=== PATIENT | female | born 1940 | race Caucasian/White ===

== ENCOUNTER → 2017-12-23 | Outpatient (CLI) | payer MEDICARE, OTHER ==
[~2017-12-23] MED LIST: ALE70 PO; ATEN-1 PO; CALC600T72 PO; HCTZ25 PO; LANS30CA70 PO; LEVO50TA86 PO; OXYC-865 PO; VIT1CAPS38 PO
--- NOTE | 2017-12-23 17:39 | RADIOLOGY IMAGING REPORT ---
FACILITY: [facility] - [place] PATIENT NAME: Hali Cisneros : 1940 MR: [id number] V: EXAM DATE: ORDERING PHYSICIAN: RIN TRIANA TECHNOLOGIST: Location: [facility] [place] Patient: Hali Cisneros : 1940 Visit/Account:[id number] Date of Sevice: 12/23/2017 Exam type: VENOUS DOPP LOW LEFT EXTREMITY History: Left leg edema Comparison: None. Findings: The left lower extremity veins were imaged including the left common femoral vein, greater saphenous vein, superficial femoral vein, popliteal vein, posterior tibial vein, peroneal vein anterior tibial veins revealing no evidence of intraluminal thrombi. The veins were compressible and demonstrated au gmentation IMPRESSION: 1. No sonographic evidence DVT involving the left lower extremity veins Results were called to RIN TRIANA at 12/23/2017 5:35 PM. Report Dictated By: Isabela Mccray MD at 12/23/2017 5:34 PM Report E-Signed By: Isabela Mccray MD at 12/23/2017 5:36 PM WSN:[id number]
== END ==
LOC: US 16:24
PROVIDERS: ATTEND Physician Assistant
DX: R60.0 Localized edema (principal)

== ENCOUNTER → 2018-02-19 | Outpatient (CLI) | payer MEDICARE, OTHER ==
--- NOTE | 2018-02-19 10:15 | RADIOLOGY IMAGING REPORT ---
FACILITY: [facility] [place] PATIENT NAME: Hali Cisneros : 1940 MR: [id number] V: [id number] EXAM DATE: ORDERING PHYSICIAN: MIKE COVARRUBIAS TECHNOLOGIST: [place] [facility] [place] Hali Cisneros : 1940 Visit/Account:[id number] Date of Sevice: 02/19/2018 ANKLE 3 VIEW MIN LEFT Indication: Angle foot pain since December. No known injury. Comparison: None. Findings: The distal tibia, distal fibula, the talus demonstrate normal mineralization. There is a sm all ossified fragment distal to the medial malleolus. The mortise is intact and in good position. Sof t tissues are normal. Calcaneus is intact. IMPRESSION: 1. Small ossified fragment. Distal to the medial malleolus. This may represent a small ossicle or old traumatic change. 2. No evidence of acute fracture. Report Dictated By: Osei Fernandez at 02/19/2018 10:10 AM Report E-Signed By: Osei Fernandez at 02/19/2018 10:12 AM WSN:[id number]
== END ==
LOC: RAD 09:10
PROVIDERS: ATTEND Family Medicine
DX: M25.572 Pain in left ankle and joints of left foot (principal)

== ENCOUNTER → 2018-07-07 | Outpatient (CLI) | payer MEDICARE, OTHER ==
--- NOTE | 2018-07-10 09:45 | RADIOLOGY IMAGING REPORT ---
FACILITY: [facility] PATIENT NAME: YANY CHAVEZ : [id number] MR: [id number] V: [id number] EXAM DATE: [id number] ORDERING PHYSICIAN: AYAZ ROGERS TECHNOLOGIST: Erin Belle PROCEDURE:BILATERAL DIGITAL SCREENING MAMMOGRAM WITH CAD ASSISTED INTERPRETATION & 3D TOMOSYNTHESIS COMPARISON:None. INDICATIONS:SCREENING FINDINGS: There are scattered areas of fibroglandular densities throughout the breasts. The parenchymal pattern has remained stable allowing for difference in mammographic technique & patient positioning. IAGNOSTIC CATEGORY 1--NEGATIVE. RECOMMENDATIONS: ROUTINE MAMMOGRAM AND CLINICAL EVALUATION. IMPRESSION: BIRADS 1: Negative. No significant abnormality is seen. Dictated by: Isabela Mccray M.D. on 07/08/2018 at 17:15 Transcribed by: NATALIIA on 07/09/2018 at 13:51 Approved by: Isabela Mccray M.D. on 07/10/2018 at 9:43 [facility]
== END ==
LOC: MAMO 00:48
PROVIDERS: ATTEND Family Medicine
DX: Z12.31 Encounter for screening mammogram for malignant neoplasm of breast (principal)
CPT/HCPCS: 77063; 77067